=== PATIENT | female | born 1975 | race Caucasian/White ===

== ENCOUNTER → 2018-05-14 | Outpatient (CLI) | payer OTHER ==
[~2018-05-14] VITALS: Ht 167.6 cm; Wt 93.0 kg
[~2018-05-14] MED LIST: LIDOCAINE 1% INJ 20 ML 20 ML VIAL INJ ONE; LIDOCAINE 1% INJ 20 ML 20 ML VIAL ONE
--- NOTE | 2018-05-14 11:18 | Diagnostic Imaging Report ---
INDICATION: Thyroid carcinoma. Patient has enlarged lymph nodes. Patient presents for ultrasound guided fine needle aspiration. Patient is brought to the procedure room placed on the table in the supine position. Ultrasound imaging over the left neck was performed to evaluate appropriate entry site. Left neck was then prepped and draped in usual sterile fashion. A small amount of 1% lidocaine was visualized for local anesthesia. A total of 4 passes were made into the elongated lymph node lying medial anterior to the left internal jugular vein utilizing 25-gauge needles. Fine needle aspiration technique was utilized. Samples were placed in cytology solution. Washing with saline was performed for thyroglobulin assay. Hemostasis was obtained using manual compression. Patient tolerated the procedure well. IMPRESSION: Ultrasound guided left neck lymph node fine needle aspiration, as described. Cytology results are pending. Dictated by: Dictated on workstation # [id number]
== END ==
LOC: RAD 09:42
PROVIDERS: ATTEND Internal Medicine Endocrinology, Diabetes & Metabolism
DX: C73 Malignant neoplasm of thyroid gland (principal); R59.0 Localized enlarged lymph nodes
CPT/HCPCS: 36415; 76942; 84432; 88173; 88305